=== PATIENT | female | born 1995 | race Caucasian/White ===

== ENCOUNTER 2016-12-08 21:05 | Emergency (ER) | payer OTHER ==
[~2016-12-08] VITALS: Ht 157.5 cm; Wt 55.6 kg
[2016-12-08 23:28] VITALS: BP 104/68
== END 2016-12-08 23:33 | disposition home or self-care (01) ==
LOC: M ED 21:05
DX: D18.01 Hemangioma of skin and subcutaneous tissue (principal); Z72.0 Tobacco use